=== PATIENT | female | born 1955 | race Caucasian/White ===

== ENCOUNTER 2017-12-07 15:32 | Emergency (ER) | payer MEDICARE, MEDICAID ==
[~2017-12-07] VITALS: Ht 157.5 cm; Wt 78.0 kg
[~2017-12-07 15:32] MED LIST: ASPI81TA30 PO; BACL10TA PO; FLUT16SP26 NS; LOSA25TA96 PO; NITR0.4T48 SL; NORCO10T PO; OMEP40CA37 PO; RIVA10TA PO; ROSU10TA PO
[2017-12-07 16:13] LABS: BASOPHILS % (AUTO) 0.1 % (0-1); EOSINOPHILS # (AUTO) 0.2 X10'3 (0-0.9); EOSINOPHILS % (AUTO) 1.6 % (0-6); HEMOGLOBIN 14.2 g/dl (12.0-16.0); LYMPHOCYTES % (AUTO) 8.1 % (21-51); MEAN CORPUSCULAR HEMOGLOBIN 31.7 PG (27.0-31.0); MEAN CORPUSCULAR HGB CONC 34.7 % (33.0-36.5); MEAN CORPUSCULAR VOLUME 91.5 FL (78-98); MEAN PLATELET VOLUME 8.1 FL (7.4-10.4); MONOCYTES # (AUTO) 0.7 X10'3 (0-0.9); MONOCYTES % (AUTO) 5.2 % (2-12); NEUTROPHILS # (AUTO) 10.9 X10'3 (1.8-7.7); PLATELET COUNT 255 X10'3 (140-440); RED BLOOD COUNT 4.48 X10'6 (4.20-5.60); RED CELL DISTRIBUTION WIDTH 14.2 % (11.5-14.5); WHITE BLOOD COUNT 12.8 X10'3 (4.5-11.0)
[2017-12-07 16:23] LABS: PARTIAL THROMBOPLASTIN TIME 36 SECONDS (22-32); PROTHROMBIN TIME 10.4 SECONDS (9.0-12.0)
[2017-12-07 16:27] LABS: ANION GAP 11 (8-16); BILIRUBIN,TOTAL 0.9 MG/DL (0.1-1.0); BLOOD UREA NITROGEN 10 MG/DL (7-18); BUN/CREATININE RATIO 15.6 (6.6-38.0); CALCIUM 9.5 MG/DL (8.5-10.1); CHLORIDE 105 MMOL/L (99-107); CREATININE 0.64 MG/DL (0.40-0.90); GLUCOSE 115 MG/DL (70-104); SODIUM 143 MMOL/L (135-145); eGFR > 90 ML/MIN
[2017-12-07 16:28] LABS: ALANINE AMINOTRANSFERASE 27 U/L (12-78); ALBUMIN 3.9 G/DL (3.4-5.0); ALKALINE PHOSPHATASE 60 IU/L (46-116); ASPARTATE AMINO TRANSFERASE 16 U/L (10-37); TOTAL PROTEIN 7.7 G/DL (6.4-8.2)
[2017-12-07] MEDS ORDERED: acetaminophen 325mg tablet PO ONE (19:05)
[2017-12-07] MEDS ORDERED: ondansetron 4mg rapidly disintigrating tab PO ONE (19:05)
[2017-12-07 19:55] LABS: CLARITY,URINE CLEAR (Clear); COLOR,URINE YELLOW (Yellow); GLUCOSE, URINE NEGATIVE (Neg); KETONES,URINE 15 mg/dl (Neg); LEUKOCYTE ESTERASE ,URINE NEGATIVE (Neg); NITRITES, URINE NEGATIVE (Neg); OCCULT BLOOD,URINE SMALL (Neg); PROTEIN,URINE NEGATIVE (Neg); UROBILINOGEN,URINE 0.2 E.U/dL (0.2-1.0)
[2017-12-07 19:57] LABS: UA COLLECTION TYPE VOIDED
[2017-12-07 20:10] LABS: BACTERIA,URINE FEW /HPF (Neg); SQUAMOUS EPITHELIAL CELL,UR FEW /LPF (FEW); WBC,URINE 0-4 /HPF (0-4)
[2017-12-07 20:11] LABS: MUCUS STRANDS MODERATE /LPF (Neg)
[2017-12-07] MEDS ORDERED: ONDA8TAB9 PO (20:14)
[2017-12-07] MEDS ORDERED: TAM75C PO (20:14)
[2017-12-07] MEDS ORDERED: CIPR-259 PO (20:14)
[2017-12-07] MEDS ORDERED: oseltamivir phos 75mg capsule PO ONE (20:15)
[2017-12-07 20:41] VITALS: BP 126/78
== END 2017-12-07 20:42 | disposition home or self-care (01) ==
LOC: ER 15:33
DX: R00.2 Palpitations (principal); R50.9 Fever, unspecified; R11.0 Nausea; R06.02 Shortness of breath; R10.9 Unspecified abdominal pain; I10 Essential (primary) hypertension; G89.29 Other chronic pain; E78.00 Pure hypercholesterolemia, unspecified; I48.91 Unspecified atrial fibrillation; Z88.0 Allergy status to penicillin; Z88.2 Allergy status to sulfonamides; Z79.82 Long term (current) use of aspirin; Z79.899 Other long term (current) drug therapy; Z98.890 Other specified postprocedural states
CPT/HCPCS: 36415; 71045; 80053; 81001; 84484; 85025; 85610; 85730; 93005; 99285

== ENCOUNTER 2019-05-23 08:24 | Emergency (ER) | payer MEDICARE, MEDICAID ==
[~2019-05-23] VITALS: Ht 157.5 cm; Wt 77.0 kg
[~2019-05-23 08:24] MED LIST changes: +OMEP40CA13 PO; -OMEP40CA37 PO; +ONDA8TAB9 PO; -ROSU10TA PO; +ROSU10TA2 PO
[2019-05-23 08:30] VITALS: BP 132/79
--- NOTE | 2019-05-23 08:44 | NUR ---
spoke to dr. al regarding patient,order noted.
[2019-05-23] MEDS ORDERED: HYDROcodone/acetaminophen 5mg/325mg tablet PO ONE (10:30)
[2019-05-23] MEDS ORDERED: ketorolac trometh inj. 60 MG/2 ML VIAL IM ONE (10:30)
[2019-05-23] MEDS ORDERED: HYDR-4383 PO (10:32)
== END 2019-05-23 11:15 | disposition home or self-care (01) ==
LOC: ER 08:25
DX: M54.12 Radiculopathy, cervical region (principal); M62.838 Other muscle spasm; I48.91 Unspecified atrial fibrillation; E78.00 Pure hypercholesterolemia, unspecified; I10 Essential (primary) hypertension; G89.29 Other chronic pain; Z98.890 Other specified postprocedural states; Z98.51 Tubal ligation status; Z88.0 Allergy status to penicillin; Z88.1 Allergy status to other antibiotic agents; Z79.899 Other long term (current) drug therapy; Z79.82 Long term (current) use of aspirin
CPT/HCPCS: 72040; 96372; 99283; J1885

== ENCOUNTER 2024-03-25 10:38 | Day surgery (SDC) | payer MEDICARE, MEDICAID ==
[~2024-03-25] VITALS: Ht 157.5 cm; Wt 71.8 kg
[~2024-03-25 10:38] MED LIST changes: -ASPI81TA30 PO; -BACL10TA PO; +CYCL5TAB PO; +GABA300C PO; +LOP12.5T PO; +LOSA-415 PO; -LOSA25TA96 PO; -OMEP40CA13 PO; +OMEP40CA21 PO; -ONDA8TAB9 PO; +PANT-47 PO
[2024-03-25] MEDS ORDERED: propofol inj 20 ML IV ONE ×2 (11:04→11:34)
[2024-03-25] MEDS ORDERED: midazolam 1 mg/ML 2ml injection ONE (11:04)
[2024-03-25] MEDS ORDERED: morphine 10mg/ml inj. ONE (11:04)
[2024-03-25 11:48] VITALS: BP 122/62; PULSE 72; RESP 16; O2SAT 99
[2024-03-25 11:58] VITALS: BP 110/47; RESP 17; O2SAT 99
[2024-03-25 12:08] VITALS: BP 128/52; PULSE 68; RESP 16; O2SAT 99
[2024-03-25 12:18] VITALS: BP 117/53; PULSE 66; RESP 16; O2SAT 99
== END 2024-03-25 12:25 | disposition home or self-care (01) ==
LOC: GI LAB 10:38
PROVIDERS: ATTEND Internal Medicine Gastroenterology
DX: R10.9 Unspecified abdominal pain (principal); K57.30 Diverticulosis of large intestine without perforation or abscess without bleeding; K29.50 Unspecified chronic gastritis without bleeding; K30 Functional dyspepsia; K21.9 Gastro-esophageal reflux disease without esophagitis; I10 Essential (primary) hypertension; Z86.010 Personal history of colon polyps; Z88.0 Allergy status to penicillin; Z88.2 Allergy status to sulfonamides
CPT/HCPCS: 43239; 45378; A4620; J2250; J2270; J2704; J7030; Z7512; J2274

== ENCOUNTER 2024-04-06 13:55 | Emergency (ER) | payer MEDICARE, MEDICAID ==
[~2024-04-06] VITALS: Ht 157.5 cm; Wt 72.8 kg
[2024-04-06 14:02] VITALS: BP 172/121; PULSE 92; O2SAT 96
[2024-04-06 15:57] VITALS: RESP 16
[2024-04-06] MEDS: HYDROcodone/acetaminophen 10/325mg tab PO ONE (15:57)
[2024-04-06] MEDS: ketorolac trometh. 30mg/ml inj. IM ONE (15:57)
[2024-04-06 16:14] VITALS: TEMP 98.3
== END 2024-04-06 16:17 | disposition home or self-care (01) ==
LOC: ER 13:57
DX: M25.551 Pain in right hip (principal); M79.604 Pain in right leg; I48.91 Unspecified atrial fibrillation; E78.00 Pure hypercholesterolemia, unspecified; I10 Essential (primary) hypertension; G89.29 Other chronic pain; M54.9 Dorsalgia, unspecified; F41.9 Anxiety disorder, unspecified; Z88.8 Allergy status to other drugs, medicaments and biological substances; Z88.6 Allergy status to analgesic agent; Z79.899 Other long term (current) drug therapy; Z98.51 Tubal ligation status
CPT/HCPCS: 73502; 96372; 99283; J1885